=== PATIENT | male | born 1970 | race Caucasian/White ===

== ENCOUNTER 2016-10-31 11:01 | Emergency (ER) | payer OTHER ==
[~2016-10-31] VITALS: Ht 157.5 cm; Wt 67.6 kg
[2016-10-31] MEDS ORDERED: LIDOCAINE 1% MDV 20ML VIAL SC ONE (13:15)
[2016-10-31] MEDS ORDERED: KEFL500C17 PO (13:55)
[2016-10-31] MEDS ORDERED: NAPR500T PO (13:55)
[2016-10-31 14:04] VITALS: BP 121/68
== END 2016-10-31 14:19 | disposition home or self-care (01) ==
LOC: M ED 11:01
DX: S61.212A Laceration without foreign body of right middle finger without damage to nail, initial encounter (principal); S61.314A Laceration without foreign body of right ring finger with damage to nail, initial encounter; W30.9XXA Contact with unspecified agricultural machinery, initial encounter; Y92.79 Other farm location as the place of occurrence of the external cause; Y93.89 Activity, other specified; Y99.8 Other external cause status; J45.909 Unspecified asthma, uncomplicated; Z88.5 Allergy status to narcotic agent; F17.210 Nicotine dependence, cigarettes, uncomplicated

== ENCOUNTER → 2025-03-08 | Outpatient (REF) | payer OTHER ==
[~2025-03-08] MED LIST: KEFL500C17 PO; NAPR-837 PO
[2025-03-08 12:26] LABS: ESTIMATED AVERAGE GLUCOSE 97.0 MG/DL (60-110)
[2025-03-08 12:47] LABS: ALT/SGPT 74 U/L (7.0-40); AST/SGOT 81 U/L (<34); CALCIUM LEVEL 9.3 MG/DL (8.5-10.1); CARBON DIOXIDE LEVEL 26 MMOL/L (20-31); CHLORIDE LEVEL 101 MMOL/L (98-107); CHOLESTEROL LEVEL 171 MG/DL (<200); CHOLESTEROL RISK RATIO 1.61 (<5); CREATININE FOR GFR 0.63 MG/DL (0.70-1.30); GLOMERULAR FILTRATION RATE > 90.0 (>56); LDL CHOLESTEROL 52.0 MG/DL (<100); NON-HDL-C 64.8 MG/DL; POTASSIUM SERUM 4.8 MMOL/L (3.5-5.1); SODIUM LEVEL 134 MMOL/L (136-145); TRIGLYCERIDES LEVEL 64 MG/DL (<150)
[2025-03-08 12:49] LABS: TOTAL 25(OH) VITAMIN D 10.0 NG/ML (20.0-100.0)
[2025-03-09 03:18] LABS: HIV 1&2 SCREEN NEGATIVE (NEGATIVE)
[2025-03-09 03:31] LABS: HEPATITIS C VIRUS ABY INDEX 0.04 INDEX (<0.8)
== END ==
LOC: M LAB REF 11:53
PROVIDERS: ATTEND Physician Assistant
DX: I10 Essential (primary) hypertension (principal); Z11.9 Encounter for screening for infectious and parasitic diseases, unspecified; E55.9 Vitamin D deficiency, unspecified